=== PATIENT | female | born 1995 | race Caucasian/White ===

== ENCOUNTER 2016-09-05 12:21 | Inpatient (IN) | payer BC, MEDICAID ==
[2016-09-05] MEDS ORDERED: MISOPROSTOL 0.2 MG TABLET ONE (13:08)
[2016-09-05] MEDS ORDERED: LIDOCAINE 1% INJ-PF (10 MG/ML) 30 ML SDV ONE (13:08)
[2016-09-05] MEDS ORDERED: OXYTOCIN 10 UNIT/ML VIAL ONE (13:09)
[2016-09-05 13:15] LABS: APPEARANCE,URINE SLIGHTLY-CLOUDY; BILIRUBIN,URINE NEGATIVE (NEGATIVE); GLUCOSE, URINE NEGATIVE (NEGATIVE); KETONES,URINE 20 mg/dL (NEGATIVE); LEUKOCYTE ESTERASE,URINE MODERATE (NEGATIVE); NITRITE,URINE NEGATIVE (NEGATIVE); PROTEIN,URINE 100 mg/dL (NEGATIVE); URINE SPECIFIC GRAVITY 1.028
[2016-09-05] MEDS ORDERED: OXYTOCIN/NORMAL SALINE 1,000 ML IV PRN (13:28)
[2016-09-05] MEDS ORDERED: DIPH/PERTUSS(ACELL)/TETANUS VAC/PF 0.5 ML SYR (>=10YO) IM PRN (13:28)
[2016-09-05] MEDS ORDERED: MEASLES,MUMPS&RUBELLA VACC/PF 0.5 ML VIAL SUBCUT PRN (13:28)
[2016-09-05] MEDS ORDERED: BENZOCAINE/MENTHOL AEROSOL SPRAY 56 ML TOP PRN (13:28)
[2016-09-05] MEDS ORDERED: ZOLPIDEM TARTRATE 5 MG TABLET PO PRN (13:28)
[2016-09-05] MEDS ORDERED: ACETAMINOPHEN WITH CODEINE #3 TABLET PO PRN ×2 (13:28)
[2016-09-05] MEDS ORDERED: DIBUCAINE 1% OINTMENT 28 GM TP PRN (13:28)
[2016-09-05 13:33] LABS: URINE BARBITURATES SCREEN NEGATIVE; URINE METHADONE SCREEN NEGATIVE; URINE OPIATES LOW NEGATIVE; URINE PHENCYCLIDINE SCREEN NEGATIVE
[2016-09-05 14:00] LABS: ABSOLUTE LYMPHOCYTES (AUTO) 1.1 10^3/uL (0.5-4.7); ABSOLUTE MONOCYTES (AUTO) 0.6 10^3/uL (0.1-1.4); ABSOLUTE NEUT (AUTO) 11.1 10^3/uL (1.7-8.2); BASOPHILS % (AUTO) 0.2 % (0-2); EOSINOPHILS % (AUTO) 0.2 % (0-6); HEMATOCRIT 31.3 % (36.0-47.0); HEMOGLOBIN 10.2 g/dL (12.0-15.5); HGB HCT DIFFERENCE -0.7; LYMPHOCYTES % (AUTO) 8.2 % (13-45); MEAN CORPUSCULAR HEMOGLOBIN 27.1 pg (27.0-33.4); MEAN CORPUSCULAR HGB CONC 32.6 g/dL (32.0-36.0); MEAN CORPUSCULAR VOLUME 83 fl (80-97); MONOCYTES % (AUTO) 4.5 % (3-13); RED BLOOD COUNT 3.78 10^6/uL (3.72-5.28); SEGMENTED NEUTROPHILS % (AUTO) 86.9 % (42-78); WHITE BLOOD COUNT 12.8 10^3/uL (4.0-10.5)
--- NOTE | 2016-09-05 15:51 | Admission Physical ---
Datetime Report Generated by CPN: 09/05/2016 15:51 CURRENT ADMISSION Hx Assessment: The History has been Reviewed and is Current Chief Complaint: Uterine Contractions Admit Plan: Initiate Labor Protocol ALLERGIES Medication Allergies: Yes Medication Allergies: penicillin G/MO (09/05/2016) Latex: No Latex Allergies Food Allergies: no Environmental Allergies: no OBSTETRICAL HISTORY EDC: 09/08/2016 00:00 : 1 Para: 0 Term: 0 : 0 SAB: 0 IAB: 0 Ectopic: 0 Livin Cesareans: 0 VBACs: 0 Multiple Births: 0 Gestational Diabetes: No Rh Sensitization: No Incompetent Cervix: No NYA: No Infertility: No ART Treatment: No Uterine Anomaly: No IUGR: No Hx Previous C/S: No Macrosomia: No Hx Loss/Stillborn: No PIH: No Hx : No Placenta Previa/Abruption: No Depression/PP Depression: No PTL/PROM: No Post Hemorrhage: No Current Procedures: Ultrasound Obstetrical History Comments: pots SEE RECORDS Alcohol: No Marijuana : No Cocaine: No Other Illicit Drugs: No Cigarettes: Never Smoker. [id number] MEDICAL HISTORY Diabetes: No Blood Transfusion: No Pulmonary Disease (Asthma, TB): No Breast Disease: No Hypertension: No Relief Map Modeler Surgery: No Heart Disease: No Hosp/Surgery: No Autoimmune Disorder: No Anesthetic Complications: No Kidney Disease: No Abnormal Pap Smear: No Neuro/Epilepsy: No Psychiatric Disorders: No Other Medical Diseases: No Hepatitis/Liver Disease: No Significant Family History: No Varicosities/Phlebitis: No Trauma/Violence : No Thyroid Dysfunction: No INFECTIOUS HISTORY Gonorrhea: No Genital Herpes: No Chlamydia: No Tuberculosis: No Syphilis: No Hepatitis: No HIV/AIDS Exposure: No Rash or Viral Illness: No HPV: No PHYSICAL EXAM General: Normal HEENT: Normal Neurologic: Normal Thyroid: Normal Heart: Normal Lungs: Normal Breast: Normal Back: Normal Abdomen: Normal Genitourinary Exam: Normal Extremities: Normal DTRs: Normal Pelvic Type: Adequate VAGINAL EXAM Dilatation: 10 Effacement: 100 Station: 2 FETUS A EGA: 39.4 Monitoring: External US FHR Category: Category I Admit Comment: Pt progressed to precipitous delivery-see delivery note PLANS FOR LABOR AND DELIVERY Labor and Delivery: None Pain Management: Natural Feeding Preference: Breast Benefit of Breast Feed Discussed: Yes Circumcision: N/A INFORMED CONSENT Signature: with User ID: [email or web address]
[2016-09-05] MEDS: FERROUS SULFATE 325 MG TABLET PO SCH (17:54)
[2016-09-05] MEDS: DOCUSATE SODIUM 100 MG CAPSULE PO SCH (17:54)
[2016-09-05] MEDS: IBUPROFEN 800 MG TABLET PO SCH (21:56)
[2016-09-06] MEDS: IBUPROFEN 800 MG TABLET PO SCH ×3 (05:30→22:05)
[2016-09-06 07:41] LABS: HEMATOCRIT 27.8 % (36.0-47.0); HEMOGLOBIN 9.1 g/dL (12.0-15.5); HGB HCT DIFFERENCE -0.5; MEAN CORPUSCULAR HEMOGLOBIN 27.4 pg (27.0-33.4); MEAN CORPUSCULAR HGB CONC 32.8 g/dL (32.0-36.0); MEAN CORPUSCULAR VOLUME 83 fl (80-97); RED BLOOD COUNT 3.34 10^6/uL (3.72-5.28); RED CELL DISTRIBUTION WIDTH 14.8 % (11.5-14.0); WHITE BLOOD COUNT 9.8 10^3/uL (4.0-10.5)
[2016-09-06] MEDS: PRENATAL VITAMIN W-O CA NO5/FE FUMARATE/FA CAPSULE PO SCH (09:14)
[2016-09-06] MEDS: FERROUS SULFATE 325 MG TABLET PO SCH ×2 (09:14→18:16)
[2016-09-06] MEDS: SENNOSIDES/DOCUSATE 8.6-50 MG 1 EACH TABLET PO SCH (09:14)
[2016-09-06] MEDS: DOCUSATE SODIUM 100 MG CAPSULE PO SCH ×2 (09:14→18:16)
--- NOTE | 2016-09-06 10:43 | Delivery Summary ---
Del Sum A-C Datetime Report Generated by CPN: 09/06/2016 10:43 DELIVERY PERSONNEL DELIVERY PERSONNEL: ,[id number] Delivery Doctor:: Kay Tobar MD Labor and Delivery Nurse:: LENCHO Trinidad/PATTERN FINISHER: Pieter Burnett, ST MATERNAL INFORMATION Delivery Anesthesia: None Medications After Delivery: Pitocin 10 Units IM Estimated Blood Loss (ml): 350 Maternal Complications: Precipitous Labor (<3hrs) Provider Comments: Pt progressed to . Head delivered OA. Shoulders and body delivered easily. EVICTION SPECIALIST/OP bulb suctioned. Cord clamped and cut. Placenta spont and intact. Pt did not have iv in place at time of delivery so pitocin 10 mu given IM as well as cytotec 1000 mcg pr. Mom and baby doing well. LABOR SUMMARY EDC: 09/08/2016 00:00 No. Babies in Womb: 1 Attempted: No Labor Anesthesia: None LABOR INFORMATION Reason for Induction: Not Applicable Onset of Labor: 09/05/2016 11:00 Complete Dilatation: 09/05/2016 13:10 Oxytocin: N/A Group B Beta Strep: neg Steroids Given: None Reason Steroids Not Administered: Not Applicable MEMBRANES Membranes Rupture Method: Spontaneous Rupture of Membranes: 09/05/2016 09:30 Length of Rupture (hr): 3.78 Amniotic Fluid Color: Light Meconium Amniotic Fluid Amount: Scant Amniotic Fluid Odor: None STAGES OF LABOR Stage 1 hr: 2 Stage 1 min: 10 Stage 2 hr: 0 Stage 2 min: 7 Stage 3 hr: 0 Stage 3 min: 2 Total Time in Labor hr: 2 Total Time in Labor min: 19 VAGINAL DELIVERY Episiotomy: None Laceration Extension: N/A Laceration Type: None Other Laceration: bilateral labia minora abrasions-hemostatic Laceration Repair: Not Applicable Sponge Count Correct: N/A Sharps Count Correct: N/A CSECTION DELIVERY Primary Indication: N/A Secondary Indication: N/A CSection Incidence: N/A Labor: N/A Elective: N/A CSection Incision: N/A BABY A INFORMATION Infant Delivery Date/Time: 09/05/2016 13:17 Method of Delivery: Vaginal Method of Delivery: Vaginal Born in Route : No : N/A Forceps: N/A Vacuum Extraction: N/A Shoulder Dystocia : No PRESENTATION/POSITION BABY A Presentation: Cephalic Presentation: Cephalic Cephalic Presentation: Vertex Vertex Position: Left Occipital Anterior Breech Presentation: N/A PLACENTA INFORMATION BABY A Placenta Delivery Time : 09/05/2016 13:19 Placenta Method of Delivery: Spontaneous Placenta Status: Delivered SCORES BABY A Heart Rate 1 min: >100 bpm Resp Effort 1 min: Good Cry Reflex Irritability 1 min: Cough or Sneeze or Pulls Away Muscle Tone 1 min: Active Motion Color 1 min: Body Rains, Extremities Blue SCORE 1 MIN: 9 Heart Rate 5 min: >100 bpm Resp Effort 5 min: Good Cry Reflex Irritability 5 min: Cough or Sneeze or Pulls Away Muscle Tone 5 min: Active Motion Color 5 min: Body Rains, Extremities Blue SCORE 5 MIN: 9 INFANT INFORMATION BABY A Gestational Age at Delivery: 39.4 Gestational Status: Full Term- 39- 40.6 Weeks Infant Outcome : Liveborn Infant Condition : Stable Infant Sex: Female Sex: Female IDENTIFICATION BABY A Verification Date/Time: 09/05/2016 13:38 ID Band Number: [id number] Mother's Name Verified: Yes RN Verifying : Kaci Saldana, RN Additional Verifying Personnel: DDexter Mayberry, RN WEIGHT/LENGTH BABY A Birthweight (gm): 3330 Infant Weight (lb): 7 Weight (oz): 5 Length (in): 19.75 Infant Length (cm): 50.17 CORD INFORMATION BABY A No. Cord Vessels: 3 Nuchal Cord : N/A Cord Blood Taken: Yes-For Storage (Mom's Blood type +) Suction: Mouth; Nose ASSESSMENT BABY A Infant Complications: None Physical Findings at Delivery: Within Normal Limits Respirations: Appears Normal Skin to Skin: Yes Skin to Skin Time (min): 60 Sister Superior/ALS Called : No Care By: D Bellavance RNC Transferred To: Remains with Mother BABY B INFORMATION : N/A SIGNATURES Signature: with User ID: [email or web address]
--- NOTE | 2016-09-06 11:18 | PDOC PROGRESS REPORT ---
Subjective-OB Subjective: Post Delivery Day:1 20 year old G1 now P1 s/p ppd1. Ambulating, without difficulty. Denies any needs at this time Physical Exam (OB) Vital Signs: Temp Pulse Resp BP Pulse Ox 98.4 F 116 H 16 121/70 98 09/06/16 07:39 09/06/16 07:39 09/06/16 07:39 09/06/16 07:39 09/06/16 07:39 Intake & Output 09/05/16 09/06/16 09/07/16 06:59 06:59 06:59 Weight 70.55 kg - General General Appearance: Appears well In distress: None - PIH/Pre-Eclampsia Clonus: Negative Headache: Absent Epigastric Pain: No Visual Changes: No - Episiotomy/Laceration Site Condition: N/A - Lochia Lochia Amount: Scant < 10 ml Lochia Color: Rubra/Red - Abdomen Description: Soft, Round Hernia Present: No Fundal Description: Firm Fundal Height: u/u - u/2 - Respiratory Respiratory Status: No respiratory distress - Extremities Upper extremity: Normal inspection Lower extremities: Normal inspection - Neurological Cognition: Normal Orientation: AAOx4 - Psychological Associated symptoms: Normal affect, Normal mood Objective-Diagnostic Laboratory: 09/06/16 07:25 09/05/16 09/05/16 09/05/16 12:25 13:46 13:46 WBC 12.8 H RBC 3.78 Hgb 10.2 L Hct 31.3 L MCV 83 MCH 27.1 MCHC 32.6 RDW 15.0 H Plt Count 225 Seg Neutrophils % 86.9 H Lymphocytes % 8.2 L Monocytes % 4.5 Eosinophils % 0.2 Basophils % 0.2 Absolute Neutrophils 11.1 H Absolute Lymphocytes 1.1 Absolute Monocytes 0.6 Absolute Eosinophils 0.0 Absolute Basophils 0.0 Urine Color SOPHIE Urine Appearance SLIGHTLY-CLOUDY Urine pH 7.0 Ur Specific [place] 1.028 Urine Protein 100 H Urine Glucose (UA) NEGATIVE Urine Ketones 20 H Urine Blood NEGATIVE Urine Nitrite NEGATIVE Ur Leukocyte Esterase MODERATE H Blood Type B POSITIVE Antibody Screen NEGATIVE 09/06/16 07:25 WBC 9.8 RBC 3.34 L Hgb 9.1 L Hct 27.8 L MCV 83 MCH 27.4 MCHC 32.8 RDW 14.8 H Plt Count 203 Seg Neutrophils % Lymphocytes % Monocytes % Eosinophils % Basophils % Absolute Neutrophils Absolute Lymphocytes Absolute Monocytes Absolute Eosinophils Absolute Basophils Urine Color Urine Appearance Urine pH Ur Specific [place] Urine Protein Urine Glucose (UA) Urine Ketones Urine Blood Urine Nitrite Ur Leukocyte Esterase Blood Type Antibody Screen Assessment and Plan(PN) - Assessment and Plan (1) Acute blood loss anemia Is this a current diagnosis for this admission?: YesPlan: inc. po iron supplementation and iron in diet (2) POTS (postural orthostatic tachycardia syndrome) Is this a current diagnosis for this admission?: YesPlan: continue stay (3) Delivery normal Is this a current diagnosis for this admission?: YesPlan: continue stay Plan:: continue stay - Time Spent with Patient Time with patient: 15-25 minutes Medications reviewed and adjusted accordingly: Yes - Disposition Anticipated Discharge: Home Within: within 24 hours
[2016-09-07] MEDS: IBUPROFEN 800 MG TABLET PO SCH ×2 (05:47→13:13)
[2016-09-07 08:04] VITALS: BP 110/63
[2016-09-07] MEDS: DOCUSATE SODIUM 100 MG CAPSULE PO SCH (09:16)
[2016-09-07] MEDS: FERROUS SULFATE 325 MG TABLET PO SCH (09:16)
[2016-09-07] MEDS: SENNOSIDES/DOCUSATE 8.6-50 MG 1 EACH TABLET PO SCH (09:17)
[2016-09-07] MEDS: PRENATAL VITAMIN W-O CA NO5/FE FUMARATE/FA CAPSULE PO SCH (09:19)
--- NOTE | 2016-09-07 12:28 | PDOC DISCHARGE SUMMARY ---
Final Diagnosis Discharge Date: 09/07/16 - Final Diagnosis (1) Acute blood loss anemia Is this a current diagnosis for this admission?: Yes (2) Delivery normal Is this a current diagnosis for this admission?: Yes (3) POTS (postural orthostatic tachycardia syndrome) Is this a current diagnosis for this admission?: Yes Discharge Data - Discharge Medication Home Medications: Iron,Carbonyl [Iron Chews] 15 mg PO DAILY 09/05/16 Vit #76/Iron,Carb/FA [Prenatabs Rx Tablet] 1 tab PO DAILY 09/05/16 Reason(s) for Admission: Onset of Labor Intrapartum Procedure(s): Spontaneous Vaginal Delivery - Diagnosis Test Laboratory: Temp Pulse Resp BP Pulse Ox 97.9 F 74 18 110/63 99 09/07/16 07:53 09/07/16 07:53 09/07/16 07:53 09/07/16 07:53 09/07/16 07:53 09/05/16 09/05/16 09/06/16 12:25 13:46 07:25 RBC 3.78 3.34 L Hgb 10.2 L 9.1 L Hct 31.3 L 27.8 L Urine Opiates Screen NEGATIVE - Discharge information/Instructions Discharge Activity: Activity As Tolerated, Balance Activity w/Rest Discharge Diet: Regular Disposition: HOME, SELF-CARE Follow up with: [facility] in: 4
== END 2016-09-07 14:37 | disposition home or self-care (01) | DRG 774 ==
LOC: LC 12:21 → LR 13:08 → 2N 15:50
PROVIDERS: ADMIT Specialist; ATTEND Specialist
PROC: 4A1HXCZ Monitoring of Products of Conception, Cardiac Rate, External Approach (ICD-10-PCS; 2016-09-05)
PROC: 10E0XZZ Delivery of Products of Conception, External Approach (ICD-10-PCS; principal; 2016-09-06)
DX: O62.3 Precipitate labor (principal); O75.4 Other complications of obstetric surgery and procedures; D62 Acute posthemorrhagic anemia; O99.02 Anemia complicating childbirth; I49.5 Sick sinus syndrome; O77.0 Labor and delivery complicated by meconium in amniotic fluid; Z88.0 Allergy status to penicillin; Z3A.39 39 weeks gestation of pregnancy; Z37.0 Single live birth
CPT/HCPCS: 36415; 80307; 81005; 85025; 85027; 86592; 86850; 86900; 86901; J2590; J3490

== ENCOUNTER 2020-01-03 17:04 | Outpatient (CLI) | payer BC ==
[2020-01-03 18:15] LABS: APPEARANCE,URINE SLIGHTLY-CLOUDY; BILIRUBIN,URINE NEGATIVE (NEGATIVE); COLOR,URINE YELLOW; GLUCOSE, URINE NEGATIVE (NEGATIVE); KETONES,URINE NEGATIVE (NEGATIVE); LEUKOCYTE ESTERASE,URINE TRACE (NEGATIVE); NITRITE,URINE NEGATIVE (NEGATIVE); PROTEIN,URINE NEGATIVE (NEGATIVE); URINE SPECIFIC GRAVITY 1.016
[2020-01-03 18:29] LABS: URINE AMPHETAMINES SCREEN NEGATIVE; URINE BARBITURATES SCREEN NEGATIVE; URINE BENZODIAZEPINES SCREEN NEGATIVE; URINE COCAINE SCREEN NEGATIVE; URINE MARIJUANA (THC) SCREEN NEGATIVE; URINE METHADONE SCREEN NEGATIVE; URINE PHENCYCLIDINE SCREEN NEGATIVE
--- NOTE | 2020-01-03 18:31 | RADIOLOGY REPORT (SQ) ---
EXAM DESCRIPTION: U/S OB LIMITED IMAGES COMPLETED DATE/TIME: 01/03/2020 6:19 pm REASON FOR STUDY: Cervical Length COMPARISON: None. TECHNIQUE: Limited transabdominal grayscale ultrasound for evaluation of specific requested obstetri heladio parameters. LIMITATIONS: None. FINDINGS: CERVICAL LENGTH: 3.2 cm. Closed. DAE: 14.5 cm. FHR: 125 beats per minute. PRESENTATION: Cephalic. PLACENTA: Anterior, grade 1. ANATOMY: Not assessed OTHER: Intrauterine gestation of 32 weeks 4 days. IMPRESSION: LIMITED OBSTETRICAL ULTRASOUND WITH MEASURED PARAMETERS DELINEATED ABOVE. Trimester of : Third trimester - 28 weeks to delivery. TECHNICAL DOCUMENTATION: JOB ID: [id number] [employer]- All Rights Reserved Reading location - IP/workstation name: [email or web address]
== END 2020-01-03 18:50 | disposition home or self-care (01) ==
LOC: LC 17:04
PROVIDERS: ATTEND Student in an Organized Health Care Education/Training Program
DX: O99.891 Other specified diseases and conditions complicating pregnancy (principal); M54.5 Low back pain; Z3A.32 32 weeks gestation of pregnancy; Z88.1 Allergy status to other antibiotic agents
CPT/HCPCS: 76815; 80307; 81001; 94760

== ENCOUNTER 2020-02-07 21:42 | Outpatient (CLI) | payer BC ==
[2020-02-07 22:16] LABS: APPEARANCE,URINE SLIGHTLY-CLOUDY; BILIRUBIN,URINE NEGATIVE (NEGATIVE); COLOR,URINE YELLOW; GLUCOSE, URINE NEGATIVE (NEGATIVE); KETONES,URINE NEGATIVE (NEGATIVE); LEUKOCYTE ESTERASE,URINE MODERATE (NEGATIVE); NITRITE,URINE NEGATIVE (NEGATIVE); PROTEIN,URINE 30 mg/dL (NEGATIVE); URINE SPECIFIC GRAVITY 1.026
[2020-02-07 22:38] LABS: URINE AMPHETAMINES SCREEN NEGATIVE; URINE BARBITURATES SCREEN NEGATIVE; URINE BENZODIAZEPINES SCREEN NEGATIVE; URINE COCAINE SCREEN NEGATIVE; URINE MARIJUANA (THC) SCREEN NEGATIVE; URINE METHADONE SCREEN NEGATIVE; URINE PHENCYCLIDINE SCREEN NEGATIVE
== END 2020-02-07 22:47 | disposition home or self-care (01) ==
LOC: LC 21:42
PROVIDERS: ATTEND Obstetrics & Gynecology
DX: O47.1 False labor at or after 37 completed weeks of gestation (principal); Z3A.37 37 weeks gestation of pregnancy; Z88.0 Allergy status to penicillin
CPT/HCPCS: 80307; 81005; 84112

== ENCOUNTER 2020-02-20 07:44 | Outpatient (CLI) | payer BC ==
--- NOTE | 2020-02-20 08:00 | Non Stress Test Report ---
Non Stress Test Datetime Report Generated by CPN: 02/20/2020 08:00 DEMOGRAPHIC EGA NST: 37.4 EGA NST: 32.4 INDICATION Indication for Study (NST) Other: labor check Indication for Study (NST) Other: lower back pain VITAL SIGNS Temperature - NST: 97.7 Pulse - NST: 92 RESP - NST: 17 NBPSYS NST: 112 NBPDIA NST: 61 MONITORING Monitor Explained: Monitor Explained; Test Explained; Patient Verbalized Understanding Monitor Explained: Monitor Explained; Test Explained Time on Monitor: 02/07/2020 21:55 Time on Monitor: 01/03/2020 17:29 Time off Monitor: 02/07/2020 22:33 Time off Monitor: 01/03/2020 17:51 NST Duration: 38 NST Duration: 22 NST INTERVENTIONS NST Interventions: None NST Interventions: PO Hydration Physician Notified NST: Dr. Quigley BABY A: [id number] BABY A Movement : Present Movement : Present Contraction Frequency : no ctx Contraction Frequency : 0 FHR Baseline : 145 FHR Baseline : 145 Accelerations : 15X15 Accelerations : 10X10 Decelerations : None Decelerations : None Variability : Moderate 6-25bpm Variability : Moderate 6-25bpm NST Review: Meets Criteria for Reactive NST NST Review: Meets Criteria for Reactive NST NST Review and Verified By : mamadou sanchez NST Results: Reactive NST Results: Reactive NST REPORT Report Trigger: Send Report
== END 2020-02-20 08:57 | disposition home or self-care (01) ==
LOC: LC 07:44
PROVIDERS: ATTEND Obstetrics & Gynecology
DX: O36.8130 Decreased fetal movements, third trimester, not applicable or unspecified (principal); Z3A.39 39 weeks gestation of pregnancy; Z88.0 Allergy status to penicillin
CPT/HCPCS: 59025

== ENCOUNTER 2020-02-27 19:38 | Inpatient (IN) | payer BC ==
--- NOTE | 2020-02-27 19:50 | Non Stress Test Report ---
Non Stress Test Datetime Report Generated by CPN: 02/27/2020 19:49 DEMOGRAPHIC EGA NST: 39.3 MONITORING Monitor Explained: Monitor Explained; Test Explained; Patient Verbalized Understanding Time on Monitor: 02/20/2020 08:00 Time off Monitor: 02/20/2020 08:38 NST Duration: 38 NST INTERVENTIONS NST Interventions: PO Hydration Physician Notified NST: Dr Barber BABY A: [id number] BABY A Movement : Present Contraction Frequency : x1 FHR Baseline : 140 Accelerations : 15X15 Decelerations : None Variability : Moderate 6-25bpm NST Review: Meets Criteria for Reactive NST NST Review and Verified By : RDonahoe RN NST Results: Reactive NST REPORT Report Trigger: Send Report (Annotations: Data stored by CPN on behalf of user)
[2020-02-27] MEDS ORDERED: RINGERS SOLUTION,LACTATED 500 ML IV ONE (20:04)
[2020-02-27] MEDS ORDERED: RINGERS SOLUTION,LACTATED 1,000 ML IV ONE (20:04)
[2020-02-27] MEDS ORDERED: OXYTOCIN 10 UNIT/ML VIAL ONE (20:32)
[2020-02-27] MEDS ORDERED: MISOPROSTOL 0.2 MG TABLET ONE (20:32)
[2020-02-27] MEDS ORDERED: OXYTOCIN/0.9 % SODIUM CHLORIDE 30 UNIT/500 ML RTUINJ ONE (20:33)
[2020-02-27] MEDS ORDERED: LIDOCAINE 1% INJ-PF (10 MG/ML) 30 ML SDV ONE (20:33)
[2020-02-27 20:34] LABS: APPEARANCE,URINE CLEAR; BILIRUBIN,URINE NEGATIVE (NEGATIVE); COLOR,URINE STRAW; GLUCOSE, URINE NEGATIVE (NEGATIVE); KETONES,URINE NEGATIVE (NEGATIVE); LEUKOCYTE ESTERASE,URINE MODERATE (NEGATIVE); NITRITE,URINE NEGATIVE (NEGATIVE); PROTEIN,URINE NEGATIVE (NEGATIVE); URINE SPECIFIC GRAVITY 1.004; UROBILINOGEN,URINE NEGATIVE mg/dL (<2.0)
[2020-02-27 20:47] LABS: ABSOLUTE EOSINOPHILS # (AUTO) 0.1 10^3/uL (0.0-0.6); ABSOLUTE LYMPHOCYTES (AUTO) 1.8 10^3/uL (0.5-4.7); ABSOLUTE MONOCYTES (AUTO) 0.5 10^3/uL (0.1-1.4); ABSOLUTE NEUT (AUTO) 6.3 10^3/uL (1.7-8.2); BASOPHILS % (AUTO) 0.2 % (0-2); EOSINOPHILS % (AUTO) 1.5 % (0-6); HEMATOCRIT 35.4 % (36.0-47.0); HEMOGLOBIN 11.8 g/dL (12.0-15.5); LYMPHOCYTES % (AUTO) 20.3 % (13-45); MEAN CORPUSCULAR HEMOGLOBIN 28.2 pg (27.0-33.4); MEAN CORPUSCULAR HGB CONC 33.4 g/dL (32.0-36.0); MEAN CORPUSCULAR VOLUME 84 fl (80-97); MONOCYTES % (AUTO) 6.2 % (3-13); PLATELET COUNT 200 10^3/uL (150-450); RED CELL DISTRIBUTION WIDTH 14.8 % (11.5-14.0); SEGMENTED NEUTROPHILS % (AUTO) 71.8 % (42-78); TOTAL CELLS COUNTED % (AUTO) 100 %; WHITE BLOOD COUNT 8.8 10^3/uL (4.0-10.5)
[2020-02-27 20:53] LABS: URINE AMPHETAMINES SCREEN NEGATIVE; URINE BARBITURATES SCREEN NEGATIVE; URINE BENZODIAZEPINES SCREEN NEGATIVE; URINE COCAINE SCREEN NEGATIVE; URINE MARIJUANA (THC) SCREEN NEGATIVE; URINE METHADONE SCREEN NEGATIVE; URINE PHENCYCLIDINE SCREEN NEGATIVE
--- NOTE | 2020-02-27 21:03 | Admission Physical ---
Datetime Report Generated by CPN: 02/27/2020 21:02 CURRENT ADMISSION Chief Complaint: Uterine Contractions Indication for Induction: Not Applicable Admit Impression : Term, Intrauterine Admit Plan: Initiate Labor Protocol ALLERGIES Medication Allergies: Yes Medication Allergies: penicillin G/MO (02/20/2020) Latex: No Latex Allergies OBSTETRICAL HISTORY EDC: 02/24/2020 00:00 : 2 Para: 1 Term: 1 Gestational Diabetes: No Rh Sensitization: No Incompetent Cervix: No NYA: No Infertility: No ART Treatment: No Uterine Anomaly: No IUGR: No Hx Previous C/S: No Macrosomia: No Hx Loss/Stillborn: No PIH: No Hx : No Placenta Previa/Abruption: No Depression/PP Depression: No PTL/PROM: No Post Hemorrhage: No Current Procedures: Ultrasound Obstetrical History Comments: G1- 7lbs 5 oz 09/05/2016 G2- current SEE RECORDS Alcohol: No Marijuana : No Cocaine: No Other Illicit Drugs: No Cigarettes: Never Smoker. [id number] MEDICAL HISTORY Diabetes: No Blood Transfusion: No Pulmonary Disease (Asthma, TB): Yes Breast Disease: No Hypertension: No Heart Disease: No Hosp/Surgery: Yes Anesthetic Complications: No Kidney Disease: No Abnormal Pap Smear: No Neuro/Epilepsy: No Psychiatric Disorders: No Other Medical Diseases: No Hepatitis/Liver Disease: No Significant Family History: No Varicosities/Phlebitis: No Trauma/Violence : No Thyroid Dysfunction: No Medical History Comments: POTS disease-pt states she passes out when hot, hospitalized with childbirth INFECTIOUS HISTORY Gonorrhea: No Genital Herpes: No Chlamydia: No Tuberculosis: No Syphilis: No Hepatitis: No HIV/AIDS Exposure: No Rash or Viral Illness: No HPV: No PHYSICAL EXAM General: Normal HEENT: Normal Neurologic: Normal Thyroid: Normal Heart: Normal Lungs: Normal Breast: Deferred Back: Normal Abdomen: Normal Genitourinary Exam: Normal Extremities: Normal DTRs: Normal Pelvic Type: Adequate FETUS A EGA: 40.3 PLANS FOR LABOR AND DELIVERY Labor and Delivery: None Pain Management: None Feeding Preference: Breast Benefit of Breast Feed Discussed: Yes Circumcision: N/A INFORMED CONSENT Signature: with User ID: [email or web address]
[2020-02-27] MEDS ORDERED: DIBUCAINE 1% OINTMENT 28 GM TP PRN (22:23)
[2020-02-27] MEDS ORDERED: MAG HYDROX/AL HYDROX/SIMETH SUSP 30 ML UDCUP PO PRN (22:23)
[2020-02-27] MEDS ORDERED: ACETAMINOPHEN WITH CODEINE #3 TABLET PO PRN (22:23)
[2020-02-27] MEDS ORDERED: MAGNESIUM HYDROXIDE SUSP 30 ML UDCUP PO PRN (22:23)
[2020-02-27] MEDS ORDERED: PSEUDOEPHEDRINE HCL 30 MG TABLET PO PRN (22:23)
[2020-02-27] MEDS ORDERED: FAMOTIDINE 20 MG TABLET PO PRN (22:23)
[2020-02-27] MEDS ORDERED: ZOLPIDEM TARTRATE 5 MG TABLET PO PRN (22:23)
[2020-02-27] MEDS ORDERED: DIPHENHYDRAMINE HCL 25 MG CAPSULE PO PRN (22:23)
[2020-02-27] MEDS ORDERED: OXYTOCIN/0.9 % SODIUM CHLORIDE 30 UNIT/500 ML RTUINJ IV PRN (22:23)
[2020-02-27] MEDS ORDERED: BENZOCAINE/MENTHOL AEROSOL SPRAY 56 ML TOP PRN (22:23)
[2020-02-27] MEDS ORDERED: VARICELLA VACC/PF (1350 UNIT/0.5 ML) 0.5 ML VIAL SUBCUT PRN (22:23)
[2020-02-27] MEDS ORDERED: GLYCERIN/WITCH HAZEL LEAF 1 EACH MED..WIPE TP PRN (22:23)
[2020-02-27] MEDS ORDERED: MEASLES,MUMPS&RUBELLA VACC/PF 0.5 ML VIAL SUBCUT PRN (22:23)
[2020-02-27] MEDS ORDERED: ACETAMINOPHEN 325 MG TABLET PO PRN (22:23)
[2020-02-27] MEDS ORDERED: ACETAMINOPHEN 650 MG SUPP.RECT PR PRN (22:23)
[2020-02-27] MEDS ORDERED: DIPH/PERTUSS(ACELL)/TETANUS VAC/PF 0.5 ML SYR (>=10YO) IM PRN (22:23)
[2020-02-27 23:40] LABS: ALBUMIN 3.3 g/dL (3.5-5.0); ALKALINE PHOSPHATASE 121 U/L (38-126); ANION GAP 5 (5-19); ASPARTATE AMINO TRANSFERASE 24 U/L (14-36); BILIRUBIN,DIRECT 0.1 mg/dL (0.0-0.4); BILIRUBIN,TOTAL 0.3 mg/dL (0.2-1.3); BLOOD UREA NITROGEN 8 mg/dL (7-20); CALCIUM 8.9 mg/dL (8.4-10.2); CARBON DIOXIDE 24 mmol/L (22-30); CHLORIDE 103 mmol/L (98-107); GLUCOSE 84 mg/dL (75-110); POTASSIUM 3.9 mmol/L (3.6-5.0); TOTAL PROTEIN 6.1 g/dL (6.3-8.2)
[2020-02-28] MEDS ORDERED: OXYTOCIN/0.9 % SODIUM CHLORIDE 30 UNIT/500 ML RTUINJ ONE (00:09)
--- NOTE | 2020-02-28 02:51 | Delivery Summary ---
Del Sum A-C Datetime Report Generated by CPN: 02/28/2020 02:50 DELIVERY PERSONNEL DELIVERY PERSONNEL: [id number] Delivery Doctor:: Paulo Groves MD Labor and Delivery Nurse:: Francie Schroeder RN Nursery Nurse:: Blanca Naqvi RN MSN Processing Tech/WELDING FOREMAN: Anabel , CISO MATERNAL INFORMATION Delivery Anesthesia: None Medications After Delivery: Pitocin 30 Units in 500ml NS/D5W Delivery QBL: 100 Maternal Complications: None LABOR SUMMARY EDC: 02/24/2020 00:00 No. Babies in Womb: 1 Attempted: No Labor Anesthesia: None LABOR INFORMATION Reason for Induction: Not Applicable Onset of Labor: 02/27/2020 19:00 Complete Dilatation: 02/27/2020 22:04 Oxytocin: N/A Group B Beta Strep: negative Steroids Given: None Reason Steroids Not Administered: Not Applicable MEMBRANES Membranes Rupture Method: Artificial Rupture of Membranes: 02/27/2020 22:04 Length of Rupture (hr): 0.12 Amniotic Fluid Color: Light Meconium Amniotic Fluid Amount: Moderate Amniotic Fluid Odor: Normal STAGES OF LABOR Stage 1 hr: 3 Stage 1 min: 4 Stage 2 hr: 0 Stage 2 min: 7 Stage 3 hr: 0 Stage 3 min: 5 Total Time in Labor hr: 3 Total Time in Labor min: 16 VAGINAL DELIVERY Episiotomy: None Laceration #1: None Laceration Extension #1: N/A Laceration Repair: Not Applicable Sponge Count Correct: Yes Sharps Count Correct: Yes CSECTION DELIVERY Primary Indication: N/A Secondary Indication: N/A CSection Incidence: N/A Labor: N/A Elective: N/A CSection Incision: N/A BABY A INFORMATION Delivery Date/Time: 02/27/2020 22:11 Method of Delivery: Vaginal Nurse Controlled Delivery: No Born in Route : No : N/A Forceps: N/A Vacuum Extraction: N/A Shoulder Dystocia : No PRESENTATION/POSITION BABY A Presentation: Cephalic Cephalic Presentation: Vertex Vertex Position: Left Occipital Anterior Breech Presentation: N/A PLACENTA INFORMATION BABY A Placenta Delivery Time : 02/27/2020 22:16 Placenta Method of Delivery: Spontaneous Placenta Status: Delivered SCORES BABY A Heart Rate 1 min: >100 bpm Resp Effort 1 min: Good Cry Reflex Irritability 1 min: Cough or Sneeze or Pulls Away Muscle Tone 1 min: Active Motion Color 1 min: Body [place], Extremities Blue Resuscitation Effort 1 min: Tactile Stimulation SCORE 1 MIN: 9 Heart Rate 5 min: >100 bpm Resp Effort 5 min: Good Cry Reflex Irritability 5 min: Cough or Sneeze or Pulls Away Muscle Tone 5 min: Active Motion Color 5 min: Body [place], Extremities Blue Resuscitation Effort 5 min: Tactile Stimulation SCORE 5 MIN: 9 INFORMATION BABY A Gestational Age at Delivery: 40.3 Gestational Status: Full Term- 39- 40.6 Weeks Infant Outcome : Liveborn Condition : Stable Sex: Female IDENTIFICATION BABY A Verification Date/Time: 02/27/2020 23:05 ID Band Number: [id number] Mother's Name Verified: Yes Infant RN Verifying Infant: Rubi Mabry, TUTU Additional Verifying Personnel: R Daren, RN WEIGHT/LENGTH BABY A Infant Birthweight (gm): 3330 Weight (lb): 7 Weight (oz): 5 Length (in): 20.00 Length (cm): 50.80 CORD INFORMATION BABY A No. Cord Vessels: 3 Nuchal Cord : N/A Cord Blood Taken: Yes-For Storage (Mom's Blood type +) Infant Suction: None ASSESSMENT BABY A Complications: None Physical Findings at Delivery: Within Normal Limits Infant Respirations: Appears Normal Skin to Skin: Yes Transferred To: Remains with Mother BABY B INFORMATION : N/A SIGNATURES Signature: with User ID: [email or web address]
--- NOTE | 2020-02-28 02:51 | Birth Certificate Data ---
Cert Data Datetime Report Generated by CPN: 02/28/2020 02:50 CERTIFICATE DATA Delivery Provider: Paulo Groves MD (01/03/2020 17:12:Paulo Groves MD ([facility])) 47a. Care: Yes (01/03/2020 17:12:Ann-Marie Gutierrez RN) RISK FACTORS IN THIS 49a. Diabetes: No (01/03/2020 17:12:Ann-Marie Gutierrez RN) 49b. Hypertension: No (01/03/2020 17:12:Ann-Marie Gtuierrez RN) 49c. Previous Births: 0 (01/03/2020 17:12:Franice Schroeder RN) 49d. Stillborns: No (01/03/2020 17:12:Ann-Marie Gutierrez RN) 49d. IUGR: No (01/03/2020 17:12:Ann-Marie Gutierrez RN) 49e. Infertility Treatment: No (01/03/2020 17:12:Ann-Marie Gutierrez RN) 49f. Previous Cesareans: 0 (01/03/2020 17:12:Francie Schroeder RN) Mother's Height 50b. Height Inches: 62 (02/27/2020 19:53:QS system process) Mother's Weight 51b. Weight at Delivery (lbs): 189 (02/27/2020 19:53:QS system process) Infections Present/Treated 53a. Gonorrhea: No (01/03/2020 17:12:Ann-Marie Gutierrez RN) Results this Hospital Visit : Negative (01/03/2020 17:12:Abby Reese RN) 53b. Syphilis: No (01/03/2020 17:12:Ann-Marie Gutierrez RN) 53c. Chlamydia: No (01/03/2020 17:12:Ann-Marie Gutierrez RN) Results this Hospital Visit: Negative (01/03/2020 17:12:Abby Reese RN) 53d. Hepatitis B: No (01/03/2020 17:12:Ann-Marie Gutierrez RN) Results this Hospital Visit: Negative (01/03/2020 17:12:Abby Reese RN) 53e. Hepatitis C: Negative (01/03/2020 17:12:Abby Reese RN) 53h. Mother Tested for HBsAG: Yes (01/03/2020 17:12:Abby Reese RN) 53i. Date Tested: 08/13/2019 00:00 (01/03/2020 17:12:Abby Reese RN) 53j. Test Result: Negative (01/03/2020 17:12:Abby Reese RN) Obstetric Procedures 54a, b, c. Obstetric Procedures: Ultrasound; NST (01/03/2020 17:12:Francie Schroeder, RN) Cigarette Smoking Cigarette Smoking: Never Smoker. [id number] (01/03/2020 17:12:Ann-Marie Gutierrez, RN) Onset of Labor 56a. PROM >12 Hrs: 0.12 (02/27/2020 22:04:QS system process) 56b. Precipitous Labor <3 Hrs: 3 (01/03/2020 17:12:QS system process) 56c. Prolonged Labor > 20 Hrs: 3 (01/03/2020 17:12:QS system process) 57a. Induction of Labor: N/A (01/03/2020 17:12:Francie Schroeder RN) 57c. Non-Vertex Presentation A: Vertex (01/03/2020 17:12:Francie Schroeder RN) 57d. Steroids - Lung Mat: None (01/03/2020 17:12:Francie Schroeder RN) 57d. Steroids - Lung Mat: Not Applicable (01/03/2020 17:12:Francie Schroeder RN) 57g. Moderate/Heavy Meconium: Light Meconium (02/27/2020 22:04:Francie Schroeder RN) 57h. Intolerance of Labor: N/A (01/03/2020 17:12:Francie Schroeder RN) : N/A (01/03/2020 17:12:Francie Schroeder RN) 57i. Epidural/Spinal Anesthesia: None (01/03/2020 17:12:Francie Schroeder RN) Method of Delivery 58a. Forceps - Unsuccessful A: N/A (01/03/2020 17:12:Francie Schroeder RN) 58b. Vacuum - Unsuccessful A: N/A (01/03/2020 17:12:Francie Schroeder RN) 58c. Presentation at 58c. Presentation at - A : Vertex (01/03/2020 17:12:Francie Schroeder RN) 58c. Presentation at - A : N/A (01/03/2020 17:12:Francie Schroeder RN) 58c. Presentation at - A : Cephalic (01/03/2020 17:12:Paulo Groves MD ([facility])) Final Route and Method of Del 58d. Baby A Route/Delivery: Vaginal (02/27/2020 22:11:Francie Schroeder RN) 58e. Trial of Labor Attempted: No (01/03/2020 17:12:Francie Schroeder RN) 58e. Trial of Labor Attempted A: N/A (01/03/2020 17:12:Francie Schroeder RN) 58e. Trial of Labor Attempted B: N/A (01/03/2020 17:12:Francie Schroeder RN) Maternal Morbidity 59b. 3rd or 4th Degree Lacs: None (01/03/2020 17:12:Paulo Groves, MD ([facility])) Birthweight Baby A: 3330 (01/03/2020 17:12:Francie Schroeder RN) 60a. Pounds : 7 (01/03/2020 17:12:QS system process) 60b. Ounces: 5 (01/03/2020:12:QS system process) 61. GA at Delivery Baby A: 40.3 (01/03/2020 17:12:Francie Schroeder RN) : Full Term- 39- 40.6 Weeks (01/03/2020:12:QS system process) 62a. 5 Minute Baby A: 9 (01/03/2020 17:12:QS system process)
[2020-02-28] MEDS: IBUPROFEN 800 MG TABLET PO SCH ×3 (06:07→23:03)
[2020-02-28 07:15] LABS: HEMATOCRIT 28.1 % (36.0-47.0); MEAN CORPUSCULAR HEMOGLOBIN 28.4 pg (27.0-33.4); MEAN CORPUSCULAR HGB CONC 33.8 g/dL (32.0-36.0); MEAN CORPUSCULAR VOLUME 84 fl (80-97); PLATELET COUNT 183 10^3/uL (150-450); RED BLOOD COUNT 3.34 10^6/uL (3.72-5.28); RED CELL DISTRIBUTION WIDTH 14.7 % (11.5-14.0); WHITE BLOOD COUNT 12.9 10^3/uL (4.0-10.5)
[2020-02-28 07:20] LABS: HEMOGLOBIN 9.5 g/dL (12.0-15.5)
[2020-02-28] MEDS: PRENATAL VITAMIN W DHA CAPSULE PO SCH (09:43)
[2020-02-28] MEDS: SENNOSIDES/DOCUSATE 8.6-50 MG 1 EACH TABLET PO SCH (09:43)
[2020-02-28] MEDS: DOCUSATE SODIUM 100 MG CAPSULE PO SCH ×2 (09:43→18:26)
[2020-02-28] MEDS: FERROUS SULFATE 325 MG TABLET PO SCH ×2 (09:43→18:26)
[2020-02-29] MEDS: IBUPROFEN 800 MG TABLET PO SCH (06:05)
[2020-02-29 08:51] VITALS: BP 111/57
--- NOTE | 2020-02-29 09:12 | PDOC PROGRESS REPORT ---
Subjective-OB Progress Note for:: 02/29/20 - PP Day #1, doing well, uob voiding, B+, Rubella immune, s/p PPH Physical Exam (OB) Vital Signs: Temp Pulse Resp BP Pulse Ox 98.1 F 75 18 111/57 L 98 02/29/20 08:51 02/29/20 08:51 02/29/20 08:51 02/29/20 08:51 02/29/20 08:51 Intake & Output 02/28/20 02/29/20 03/01/20 06:59 06:59 06:59 Output Total 300 Balance -300 Weight 86.1 kg - General General Appearance: Appears well, Alert In distress: None - PIH/Pre-Eclampsia DTR's: 1 + Clonus: Negative Headache: Absent Epigastric Pain: No Visual Changes: No - Maternal Morbidity 59. Maternal Morbidity (serious complications experinced by the mother associated with labor and delivery: None of the above - Lochia Lochia Amount: Scant < 10 ml Lochia Color: Rubra/Red - Abdomen Description: Firm, Soft Hernia Present: No Fundal Description: Firm, Midline Fundal Height: u/u - u/2 - Respiratory Respiratory Status: No respiratory distress - Abdominal Distension: No distension Tenderness: Nontender - Genitourinary Genitourinary Note: voiding - Extremities Upper extremity: Normal inspection Lower extremities: Normal inspection - Neurological Cognition: Normal Orientation: AAOx4 - Psychological Associated symptoms: Normal affect, Normal mood Objective-Diagnostic Laboratory: 02/28/20 06:40 02/27/20 20:32 Assessment and Plan(PN) - Assessment and Plan (1) Acute blood loss anemia Is this a current diagnosis for this admission?: Yes (2) Delivery normal Is this a current diagnosis for this admission?: Yes (3) POTS (postural orthostatic tachycardia syndrome) Is this a current diagnosis for this admission?: Yes Plan:: Routine PP orders, ambulation encouraged. - Time Spent with Patient Time with patient: Less than 15 minutes Medications reviewed and adjusted accordingly: Yes - Disposition Anticipated Discharge Disposition: Home, Self Care Anticipated Discharge Timeframe: within 24 hours
--- NOTE | 2020-02-29 09:15 | PDOC DISCHARGE SUMMARY ---
Impression - Admit/DC Date/PCP Admission Date/Primary Care Provider: 02/27/20 20:00 CASH ONOFRE MD Discharge Date: 02/29/20 - PP day #2, doing well, no complaints B+, Rubella immune, - Discharge Diagnosis (1) Acute blood loss anemia Is this a current diagnosis for this admission?: Yes (2) Delivery normal Is this a current diagnosis for this admission?: Yes (3) POTS (postural orthostatic tachycardia syndrome) Is this a current diagnosis for this admission?: Yes - Additional Information Resuscitation Status: Full Code Discharge Diet: As Tolerated, Regular Discharge Activity: Activity As Tolerated, No Lifting Over 10 Pounds, Pelvic Rest Referrals: CASH ONOFRE MD [Primary Care Provider] - Prescriptions: Ferrous Sulfate [Feosol 325 mg Tablet] 325 mg PO BID #30 tablet Ibuprofen [Motrin 800 mg Tablet] 800 mg PO Q8 #60 tablet Home Medications: Vit,Calc76/Iron/Folic [Prenatabs Rx Tablet] 1 tab PO DAILY 09/05/16 Fludrocortisone Acetate [Florinef 0.1 mg Tablet] 2 tab PO DAILY 01/03/20 Ferrous Sulfate [Feosol 325 mg Tablet] 325 mg PO BID #30 tablet 02/29/20 Ibuprofen [Motrin 800 mg Tablet] 800 mg PO Q8 #60 tablet 02/29/20 HPI Reason(s) for Admission: Onset of Labor Procedures: Ultrasound Intrapartum Procedure(s): Spontaneous Vaginal Delivery Complication(s): Hemorrhage-Uterine Atony Hospital Course 59. Maternal Morbidity (serious complications experinced by the mother associated with labor and delivery: None of the above Results Laboratory Results: WBC 12.9 10^3/uL (4.0-10.5) H 02/28/20 06:40 RBC 3.34 10^6/uL (3.72-5.28) L 02/28/20 06:40 Hgb 9.5 g/dL (12.0-15.5) L D 02/28/20 06:40 Hct 28.1 % (36.0-47.0) L 02/28/20 06:40 MCV 84 fl (80-97) 02/28/20 06:40 MCH 28.4 pg (27.0-33.4) 02/28/20 06:40 MCHC 33.8 g/dL (32.0-36.0) 02/28/20 06:40 RDW 14.7 % (11.5-14.0) H 02/28/20 06:40 Plt Count 183 10^3/uL (150-450) 02/28/20 06:40 Lymph % (Auto) 20.3 % (13-45) 02/27/20 20:32 Archer % (Auto) 6.2 % (3-13) 02/27/20 20:32 Eos % (Auto) 1.5 % (0-6) 02/27/20 20:32 Baso % (Auto) 0.2 % (0-2) 02/27/20 20:32 Absolute Neuts (auto) 6.3 10^3/uL (1.7-8.2) 02/27/20 20:32 Absolute Lymphs (auto) 1.8 10^3/uL (0.5-4.7) 02/27/20 20:32 Absolute Monos (auto) 0.5 10^3/uL (0.1-1.4) 02/27/20 20:32 Absolute Eos (auto) 0.1 10^3/uL (0.0-0.6) 02/27/20 20:32 Absolute Basos (auto) 0.0 10^3/uL (0.0-0.2) 02/27/20 20:32 Seg Neutrophils % 71.8 % (42-78) 02/27/20 20:32 Sodium 131.7 mmol/L (137-145) L 02/27/20 20:32 Potassium 3.9 mmol/L (3.6-5.0) 02/27/20 20:32 Chloride 103 mmol/L (98-107) 02/27/20 20:32 Carbon Dioxide 24 mmol/L (22-30) 02/27/20 20:32 Anion Gap 5 (5-19) 02/27/20 20:32 BUN 8 mg/dL (7-20) 02/27/20 20:32 Creatinine 0.57 mg/dL (0.52-1.25) 02/27/20 20:32 Est GFR ( Amer) > 60 (>60) 02/27/20 20:32 Est GFR (MDRD) Non-Af > 60 (>60) 02/27/20 20:32 Glucose 84 mg/dL (75-110) 02/27/20 20:32 Uric Acid 4.0 mg/dL (2.5-6.2) 02/27/20 20:32 Calcium 8.9 mg/dL (8.4-10.2) 02/27/20 20:32 Total Bilirubin 0.3 mg/dL (0.2-1.3) 02/27/20 20: Direct Bilirubin 0.1 mg/dL (0.0-0.4) 02/27/20 20:32 Neonat Total Bilirubin Not Reportable 02/27/20 20:32 Neonat Direct Bilirubin Not Reportable 02/27/20 20:32 Neonat Indirect Bili Not Reportable 02/27/20 20:32 AST 24 U/L (14-36) 02/27/20 20:32 ALT 12 U/L (<35) 02/27/20 20:32 Alkaline Phosphatase 121 U/L (38-126) 02/27/20 20:32 Lactate Dehydrogenase 189 U/L (120-246) 02/27/20 20:32 Total Protein 6.1 g/dL (6.3-8.2) L 02/27/20 20: Albumin 3.3 g/dL (3.5-5.0) L 02/27/20 20:32 Urine Color STRAW 02/27/20 20:00 Urine Appearance CLEAR 02/27/20 20:00 Urine pH 7.0 (5.0-9.0) 02/27/20 20:00 Ur Specific [place] 1.004 02/27/20 20:00 Urine Protein NEGATIVE mg/dL (NEGATIVE) 02/27/20 20:00 Urine Glucose (UA) NEGATIVE mg/dL (NEGATIVE) 02/27/20 20:00 Urine Ketones NEGATIVE mg/dL (NEGATIVE) 02/27/20 20:00 Urine Blood NEGATIVE (NEGATIVE) 02/27/20 20:00 Urine Nitrite NEGATIVE (NEGATIVE) 02/27/20 20:00 Urine Bilirubin NEGATIVE (NEGATIVE) 02/27/20 20:00 Urine Urobilinogen NEGATIVE mg/dL (<2.0) 02/27/20 20:00 Ur Leukocyte Esterase MODERATE (NEGATIVE) H 02/27/20 20:00 Urine Ascorbic Acid NEGATIVE (NEGATIVE) 02/27/20 20:00 Urine Opiates Screen NEGATIVE 02/27/20 20:00 Urine Methadone Screen NEGATIVE 02/27/20 20:00 Ur Barbiturates Screen NEGATIVE 02/27/20 20:00 Ur Phencyclidine Scrn NEGATIVE 02/27/20 20:00 Ur Amphetamines Screen NEGATIVE 02/27/20 20:00 U Benzodiazepines Scrn NEGATIVE 02/27/20 20:00 Urine Cocaine Screen NEGATIVE 02/27/20 20:00 U Marijuana (THC) Screen NEGATIVE 02/27/20 20:00 RPR NONREACTIVE (NONREACTIVE) 02/27/20 20:32 Blood Type B POSITIVE 02/27/20 20:32 Antibody Screen NEGATIVE 02/27/20 20:32 Plan Health Concerns: iron rich foods Plan of Treatment: d/c home. f/up with [facility] in 4 wks for PP check Time Spent: Less than 30 Minutes
[2020-02-29] MEDS: DOCUSATE SODIUM 100 MG CAPSULE PO SCH (09:43)
[2020-02-29] MEDS: FERROUS SULFATE 325 MG TABLET PO SCH (09:43)
[2020-02-29] MEDS: SENNOSIDES/DOCUSATE 8.6-50 MG 1 EACH TABLET PO SCH (09:43)
[2020-02-29] MEDS: PRENATAL VITAMIN W DHA CAPSULE PO SCH (09:43)
== END 2020-02-29 12:45 | disposition home or self-care (01) | DRG 308 ==
LOC: LC 19:38 → LR 20:00 → 2S 02-28 03:10
PROVIDERS: ADMIT Obstetrics & Gynecology Gynecology; ATTEND Obstetrics & Gynecology Gynecology
PROC: 10E0XZZ Delivery of Products of Conception, External Approach (ICD-10-PCS; principal; 2020-02-27)
DX: I49.8 Other specified cardiac arrhythmias (principal); O99.42 Diseases of the circulatory system complicating childbirth; D62 Acute posthemorrhagic anemia; O77.0 Labor and delivery complicated by meconium in amniotic fluid; Z88.0 Allergy status to penicillin; Z3A.40 40 weeks gestation of pregnancy; O99.02 Anemia complicating childbirth; Z37.0 Single live birth
CPT/HCPCS: 36415; 80053; 80307; 81005; 83615; 84550; 85025; 85027; 86592; 86850; 86900; 86901; J2590; J3490